=== PATIENT | male | born 1955 | race Caucasian/White ===

== ENCOUNTER 2021-03-11 12:06 | Emergency (ER) | payer OTHER ==
[2021-03-11 12:21] VITALS: BP 138/75; PULSE 87; TEMP 98.4; BMI 24.3
[2021-03-11] MEDS ORDERED: KETOROLAC TROMETHAMINE 30 MG/1 ML VIAL IM ONE (13:09)
[2021-03-11] MEDS ORDERED: METHOCARBAMOL 500 MG TABLET PO ONE (13:09)
== END 2021-03-11 14:00 | disposition left against medical advice (07) ==
LOC: JER 12:06
DX: M54.2 Cervicalgia (principal)
CPT/HCPCS: 99281-25